=== PATIENT | female | born 1945 | race Caucasian/White ===

== ENCOUNTER 2021-02-04 14:33 | Outpatient (REF) | payer MEDICARE, SELFPAY ==
[2021-02-04 16:39] LABS: Hematocrit 46.3 % (37.0-47.0); Hemoglobin 15.8 g/dl (12.0-16.0); Mean Corpuscular HGB Conc 34.1 g/dl (31.0-35.0); Mean Corpuscular Hemoglobin 30.4 pg (27.0-33.0); Mean Corpuscular Volume 89.2 fL (80.0-98.0); Mean Platelet Volume 12.5 fL (9.4-12.3); Platelet Count 210 X10*3/uL (160-400); Red Blood Count 5.19 X10*6/uL (4.20-5.50); Red Cell Distribution Width 13.7 % (11.0-16.0); White Blood Count 8.2 X10*3/uL (4.8-10.8)
[2021-02-04 16:50] LABS: Alanine Aminotransferase 38 U/L (0-31); Albumin Level 3.9 g/dL (3.5-5.0); Alkaline Phosphatase 62 U/L (39-117); Anion Gap 11 (12-20); Aspartate Amino Transferase 26 U/L (5-31); Bilirubin Total 1.1 mg/dL (0.0-1.0); Blood Urea Nitrogen 11 mg/dL (9-16); Calcium 9.6 mg/dL (8.4-10.2); Carbon Dioxide 26 mmol/L (22-29); Chloride 105 mmol/L (96-108); Cholesterol 189 mg/dL; Estimated Glomerular Filt Rate > 60; Glucose Fasting 92 mg/dL (60-99); HDL Cholesterol 41 mg/dL; LDL Cholesterol Calculated 103 mg/dl; Potassium 4.2 mmol/L (3.3-5.1); Sodium 138 mmol/L (135-145); Total Protein 6.7 g/dL (6.5-8.0); Triglycerides 226 mg/dL
[2021-02-04 17:10] LABS: TSH reflex Free T4 2.26 uIU/mL (0.32-4.0); Vitamin D 25-OH Total 37.6 ng/mL (>30)
== END 2021-02-04 14:34 | disposition home or self-care (01) ==
LOC: HO.HMGCLDS 14:33
PROVIDERS: PCP Internal Medicine; Visit Provider Internal Medicine
DX: Z00.00 Encounter for general adult medical examination without abnormal findings (principal); I10 Essential (primary) hypertension; R00.1 Bradycardia, unspecified
CPT/HCPCS: 36415; 80053; 80061; 82306; 84443; 85027

== ENCOUNTER 2022-06-10 10:11 | Outpatient (REF) | payer OTHER, SELFPAY ==
--- NOTE | ~2022-06-10 | XR_ITS ---
EXAMINATION: XR lumbar spine 2-3V CLINICAL INFORMATION: Reason for Exam M54.50 - Low back pain, unspecified COMPARISON: None TECHNIQUE: 3 views of the lumbar spine FINDINGS: 5 nonrib-bearing lumbar-type vertebral bodies. Vertebral body heights are maintained. Leftward scoliosis of the lumbar spine Mild multilevel degenerative disc disease with loss of disc space height, facet arthropathy and disc osteophyte complexes. This is worst at L5/S1. Paravertebral soft tissues are unremarkable. XR/XR lumbar spine 2-3V IMPRESSION: Moderate spondylosis of the lumbar spine, as above detailed.
[2022-06-10 11:17] LABS: MANUAL DIFF FLAG NO
[2022-06-10 11:30] LABS: Basophils Absolute Auto 0.1 X10*3/uL (0.0-0.2); Basophils Percent Auto 0.6 % (0-2); Eosinophils Absolute Auto 0.3 X10*3/uL (0.0-0.4); Eosinophils Percent Auto 3.2 % (0-4); Hematocrit 47.5 % (37.0-47.0); Hemoglobin 15.3 g/dl (12.0-16.0); Imm Gran Abs Auto 0.03 X10*3/uL (0.00-0.03); Imm Gran Pct Auto 0.3 % (0.0-0.4); Lymphocytes Absolute Auto 2.2 X10*3/uL (1.2-4.9); Lymphocytes Percent Auto 24.8 % (20-40); Mean Corpuscular HGB Conc 32.2 g/dl (31.0-35.0); Mean Corpuscular Hemoglobin 27.1 pg (27.0-33.0); Mean Corpuscular Volume 84.2 fL (80.0-98.0); Mean Platelet Volume 12.3 fL (9.4-12.3); Monocytes Absolute Auto 0.8 X10*3/uL (0.1-1.2); Monocytes Percent Auto 8.8 % (2-11); Neutrophils Absolute Auto 5.6 x10*3/uL (2.0-8.3); Neutrophils Percent Auto 62.3 % (45-73); Platelet Count 243 X10*3/uL (160-400); Red Blood Count 5.64 X10*6/uL (4.20-5.50)
[2022-06-10 11:53] LABS: Alanine Aminotransferase 45 U/L (0-31); Alkaline Phosphatase 77 U/L (39-117); Anion Gap 14 (12-20); Aspartate Amino Transferase 32 U/L (5-31); Bilirubin Total 0.7 mg/dL (0.0-1.0); Blood Urea Nitrogen 18 mg/dL (9-16); Calcium 9.7 mg/dL (8.4-10.2); Carbon Dioxide 24 mmol/L (22-29); Chloride 108 mmol/L (96-108); Cholesterol 211 mg/dL; Estimated Glomerular Filt Rate > 60; Glucose Fasting 94 mg/dL (60-99); HDL Cholesterol 48 mg/dL; LDL Cholesterol Calculated 115 mg/dl; Potassium 4.5 mmol/L (3.3-5.1); Sodium 141 mmol/L (135-145); Triglycerides 244 mg/dL
[2022-06-10 12:11] LABS: TSH reflex Free T4 2.31 uIU/mL (0.32-4.0); Vitamin D 25-OH Total 50.1 ng/mL (>30)
== END 2022-06-10 10:12 | disposition home or self-care (01) ==
LOC: HO.HMGCX 10:11
PROVIDERS: PCP Internal Medicine; Visit Provider Internal Medicine
DX: M54.50 Low back pain, unspecified (principal); I10 Essential (primary) hypertension; K62.5 Hemorrhage of anus and rectum; E78.5 Hyperlipidemia, unspecified; I48.91 Unspecified atrial fibrillation; E55.9 Vitamin D deficiency, unspecified
CPT/HCPCS: 36415; 72100; 80053; 80061; 82306; 84443; 85025

== ENCOUNTER 2022-12-30 11:45 | Outpatient (AMB) | payer OTHER, MEDICARE, SELFPAY ==
--- NOTE | 2022-12-30 11:46 | A.OFFPC_ITS ---
Intake Visit Reasons: 30 day face to face-iPhone Intake Note: Telehealth visit. 30 day face to face. Allergies No Known Allergies Allergy (Verified 12/30/22 11:46) Medication List - Last Reconciled 12/30/22 by Vandana Carvajal MD amlodipine 5 mg PO DAILY apixaban (Eliquis) 5 mg PO BID hydralazine 25 mg PO BID irbesartan 300 mg PO DAILY levothyroxine 88 mcg PO DAILY miscellaneous medical supply 1 ea miscellaneous .QD pravastatin 20 mg PO DAILY Tobacco use date assessed: 12/30/22 Dental Screening Dental Screen Date: 12/30/22 Did you have a dental visit in the last 12 months?: Yes Did you have a dental problem in the last 6 months where you did not have access to dental care?: No Was dental information given to patient?: Patient has dentist HPI 30 day face to face-iPhone HPI Details This is a tele health [id number] visit. Patient resides in an assisted living facility. She has been staying mainly in bed during a day because her wheelchair is not comfortable. Patient is getting physical therapy twice a week to improve transfer from bed to wheelchair as well as passive range of motion on the left lower extremity. Hypertension is controlled on current medications. 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 [facility] Medical History NSTEMI (non-ST elevated myocardial infarction) A-fib SAH (subarachnoid hemorrhage) Bradycardia HTN (hypertension) Diarrhea Rectal bleeding Annual physical exam Family History Father Hypertension Heart problem Mother Hypertension Mental health disorder Social History Household Members Other:: lives with Housing: House Patient Tobacco Use Status: Never used Tobacco e-Cigarette/Vaping Use: Never Used Current occupational status: retired Cognitive needs: No Hearing needs: No Vision needs: No Questionnaire Thrive Questionnaire Date Thrive assessed: 04/29/21 KIRIT-7 AMB Questionnaire KIRIT-7 Date KIRIT - 7 assessed: 03/24/23 Source: Developed by Drs. Cesar Christiansen, Glenna Sears, Rush Quan and colleagues, with an educational collin from [employer]. Review of Systems Const All systems reviewed & are unremarkable except as noted in HPI and below Reports no additional complaints Eyes Reports no additional complaints ENT Reports no additional complaints Card Reports no additional complaints Resp Reports no additional complaints GI Reports no additional complaints Physical exam (Primary Care) Tobacco/Smoking Status: Tobacco use Status Tobacco use date assessed 12/30/22 12/30/22 11:47 Patient Tobacco Use Status Never used Tobacco 12/30/22 11:47 e-Cigarette/Vaping Use Never Used 12/30/22 11:47 Thrive Assessment: Date of Thrive Assessment Date Thrive assessed 04/29/21 12/30/22 11:47 Telehealth Telehealth Location of provider rendering services: practice address Location of patient: address on file Patient Identification confirmed using: Name, : Yes Telehealth method: video Patient verbally consented to treatment: Yes Patient verbally consented to billing insurance company: Yes Patient informed of any privacy concerns related to visit: Yes Minutes spent on Phone/Video with Pt.: 25 Assessment and Plan Assessment & Plan (1) Hyperlipidemia: Code(s): E78.5 - Hyperlipidemia, unspecified Plan: Continue statin, patient needs a fasting blood work in 6 months (2) A-fib: Comment: Anticoagulated Code(s): I48.91 - Unspecified atrial fibrillation Plan: Continue Eliquis (3) HTN (hypertension): Code(s): I10 - Essential (primary) hypertension Plan: Continue current medications (4) Hemiparesis: Code(s): G81.90 - Hemiplegia, unspecified affecting unspecified side Plan: It is medically necessary for the patient to have physical therapy twice a week to improve transfer from bed to wheelchair and to a shower/. Patient needs passive range of motion exercises for left upper and lower extremity, as well as assessment for wheelchair fitting. Patient will follow-up in 6 months for tele health visit and needs to have fasting blood work done prior to visit by [facility]. Orders: Orders Comprehensive [place]. Panel Fast 6 Months E78.5 - Hyperlipidemia, unspecified, G81.90 - Hemiplegia, unspecified affecting unspecified side, I10 - Essential (primary) hypertension, I48.91 - Unspecified atrial fibrillation Complete Blood Count Auto Diff 6 Months E78.5 - Hyperlipidemia, unspecified, G81.90 - Hemiplegia, unspecified affecting unspecified side, I10 - Essential (primary) hypertension, I48.91 - Unspecified atrial fibrillation Lipid Panel 6 Months E78.5 - Hyperlipidemia, unspecified, G81.90 - Hemiplegia, unspecified affecting unspecified side, I10 - Essential (primary) hypertension, I48.91 - Unspecified atrial fibrillation TSH reflex Free T4 6 Months E78.5 - Hyperlipidemia, unspecified, G81.90 - Hemiplegia, unspecified affecting unspecified side, I10 - Essential (primary) hypertension, I48.91 - Unspecified atrial fibrillation Coding Level of Care Code Tele Est Pt Level 4 (25628) Diagnoses Hyperlipidemia E78.5 A-fib I48.91 HTN (hypertension) I10 Hemiparesis G81.90
== END 2022-12-30 12:39 | disposition home or self-care (01) ==
LOC: HO.HMGC 11:45
PROVIDERS: PCP Internal Medicine; Visit Provider Internal Medicine
DX: E78.5 Hyperlipidemia, unspecified (principal); I48.91 Unspecified atrial fibrillation; I10 Essential (primary) hypertension; G81.90 Hemiplegia, unspecified affecting unspecified side
CPT/HCPCS: 99214

== ENCOUNTER 2023-06-17 01:00 | Outpatient (REF) | payer OTHER, MEDICARE, SELFPAY ==
[2023-06-17 13:49] LABS: Appearance Urine Cloudy; Glucose Urine UA Negative (Negative); Leukocyte Esterase Urine Large (3+) (Negative); Nitrite Urine Positive (Negative); PH 6.5 (5.0-9.0); Specific Gravity - Urine 1.015 (1.005-1.025); UMIC TRIGGER UACC YES; Urine Blood Large (3+) (Negative); Urine Ketones Trace mg/dL (Negative); Urine Protein 30 (1+) mg/dL (Neg-Trace)
[2023-06-17 13:52] LABS: Color Urine Other
[2023-06-17 14:09] LABS: Bacteria Urine 4+ (None Seen); Hyaline Casts Urine 0-2 /LPF (0-2); RBC Urine >20 /HPF (0-2); UACC Culture Trigger YES; WBC Urine >50 /HPF (0-5)
== END 2023-06-17 01:01 | disposition home or self-care (01) ==
LOC: HO.HMGCLNP 01:00
PROVIDERS: PCP Internal Medicine; Visit Provider Internal Medicine
DX: R31.9 Hematuria, unspecified (principal)
CPT/HCPCS: 81001; 87086; 87088; 87186

== ENCOUNTER 2023-11-24 12:00 | Outpatient (AMB) | payer MEDICARE, OTHER, SELFPAY ==
--- NOTE | 2023-11-24 12:02 | A.OFFPC_ITS ---
Vital Signs 11/24/23 12:04 Weight 184 lb 2 oz BP 118/76 Blood Pressure Location Rt brachial Position Sitting Pulse 80 Pulse Source Pulse Oximeter Pulse Oximetry (%) 97 Oxygen Delivery Method Room Air Intake Visit Reasons: Annual Exam - see comments Intake Note: Patient here for physical exam. Allergies No Known Allergies Allergy (Verified 11/24/23 12:04) Medication List - Last Reconciled 11/24/23 by Vandana Carvajal MD amlodipine 5 mg PO DAILY apixaban (Eliquis) 5 mg PO BID cholecalciferol (vitamin D3) 25 mcg PO DAILY hydralazine 25 mg PO BID irbesartan 300 mg PO DAILY levothyroxine 88 mcg PO DAILY melatonin 3 mg PO BEDTIME PRN miscellaneous medical supply 1 ea miscellaneous .QD multivitamin 1 tab PO DAILY pravastatin 20 mg PO DAILY Tobacco use date assessed: 11/24/23 Fall risk assessment: No Falls in past year Last assessed Fall Risk: 11/24/23 Dental Screening Dental Screen Date: 11/24/23 Did you have a dental visit in the last 12 months?: No Did you have a dental problem in the last 6 months where you did not have access to dental care?: No Was dental information given to patient?: No HPI Annual Exam - see comments HPI Details Patient presents for physical PFSH Medical History NSTEMI (non-ST elevated myocardial infarction) A-fib SAH (subarachnoid hemorrhage) Bradycardia HTN (hypertension) Diarrhea Rectal bleeding Annual physical exam Family History Father Hypertension Heart problem Mother Hypertension Mental health disorder Social History Household Members Other:: lives with Housing: House Patient Tobacco Use Status: Never used Tobacco e-Cigarette/Vaping Use: Never Used Current occupational status: retired Cognitive needs: No Hearing needs: No Vision needs: No Questionnaire PHQ-9 Over the last 2 weeks, how often have you been bothered by any of the following problems? 58166 - PHQ-9 Billing: Patient declined-do not bill Source: Developed by Drs. Cesar Christiansen, Glenna Sears, Rush Quan and colleagues, with an educational collin from [employer]. Thrive Questionnaire Date Thrive assessed: 11/24/23 I am a: Patient What is your living situation today?: I have a steady place to live Within the past 12 months, did the food you bought not last and you didn't have the money to get more?: Never true Within the past 12 months, did you worry whether your food would run out before you got money to buy more?: Never true Do you have trouble paying for medicines?: No Do you have trouble getting transportation to medical appointments?: Yes Do you have trouble paying your heating and electricity bill?: No Do you have trouble taking care of your child, family member or friend?: No Do you have trouble with day-to-day activities such as bathing, preparing meals, shopping, managing finances, etc.?: Yes Are you currently unemployed and looking for a job?: No Are you interested in more education?: No Please select the resources that you would like help with: Transportation Currently or been in a relationship where the following occur: No concerns reported THRIVE Score: 1 AUDIT C Alcohol Use Questionnaire (AUDIT-C) 1. How often do you have a drink containing alcohol?: Never Total Score: 0 Score Reviewed/Action Taken: No KIRIT-7 AMB Questionnaire KIRIT-7 Date KIRIT - 7 assessed: 11/24/23 Feeling nervous, anxious, or on edge: 0 = Not at all Not being able to stop or control worryin = Not at all Worrying too much about different things: 0 = Not at all Trouble relaxin = Not at all Being so restless that it is hard to sit still: 0 = Not at all Becoming easily annoyed or irritable: 0 = Not at all Feeling afraid as if something awful might happen: 0 = Not at all Total KIRIT-7 score (0-4 normal; 5-9 mild; 10-14 moderate; 15-21 severe): 0 Source: Developed by Drs. Cesar Christiansen, Glenna Sears, Rush Quan and colleagues, with an educational collin from [employer]. KIRIT-7 Assessment Billing KIRIT-7 Assessment Tool: KIRIT-7 Assessment 09233 Review of Systems Const All systems reviewed & are unremarkable except as noted in HPI and below Eyes Reports no additional complaints Card Reports no additional complaints Resp Reports no additional complaints GI Reports no additional complaints Reports no additional complaints Physical exam (Primary Care) Vital Signs: Last Vital Signs Pulse 80 11/24/23 12:04 BP 118/76 11/24/23 12:04 Pulse Ox 97 11/24/23 12:04 Oxygen Delivery Method Room Air 11/24/23 12:04 Tobacco/Smoking Status: Tobacco use Status Tobacco use date assessed 11/24/23 11/24/23 12:08 Patient Tobacco Use Status Never used Tobacco 11/24/23 12:03 e-Cigarette/Vaping Use Never Used 11/24/23 12:03 Thrive Assessment: Date of Thrive Assessment Date Thrive assessed 11/24/23 11/24/23 12:08 Currently or been in a relationship where the following occur: No concerns reported Const General: no acute distress HENMT Head: Yes normal to inspection Ears: hearing grossly normal bilaterally General nose exam: Normal external nose present Eyes General: appearance normal, both eyes and all related structures Neck Neck: Yes no lymphadenopathy and Yes supple Resp Effort & Inspection: normal respiratory effort Auscultation: clear to auscultation bilaterally Cardio Rhythm: regular rhythm Heart sounds: S1 normal heart sound present and S2 normal heart sound present GI Inspection: Yes normal to inspection Palpation (GI): Soft to palpation Percussion: Yes normal to percussion Auscultation: normal bowel sounds Assessment and Plan Assessment & Plan (1) Second degree AV block, Mobitz type II: Comment: 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 Return in 1 year Orders: Orders Comprehensive [place]. Panel Fast Today E55.9 - Vitamin D deficiency, unspecified, E78.5 - Hyperlipidemia, unspecified, G81.90 - Hemiplegia, unspecified affecting unspecified side, I10 - Essential (primary) hypertension, I44.1 - Atrioventricular block, second degree, I48.91 - Unspecified atrial fibrillation, Z00.00 - Encounter for general adult medical examination without abnormal findings Complete Blood Count Auto Diff Today E55.9 - Vitamin D deficiency, unspecified, E78.5 - Hyperlipidemia, unspecified, G81.90 - Hemiplegia, unspecified affecting unspecified side, I10 - Essential (primary) hypertension, I44.1 - Atrioventricular block, second degree, I48.91 - Unspecified atrial fibrillation, Z00.00 - Encounter for general adult medical examination without abnormal findings Lipid Panel Today E55.9 - Vitamin D deficiency, unspecified, E78.5 - Hyperlipidemia, unspecified, G81.90 - Hemiplegia, unspecified affecting unspecified side, I10 - Essential (primary) hypertension, I44.1 - Atrioventricular block, second degree, I48.91 - Unspecified atrial fibrillation, Z00.00 - Encounter for general adult medical examination without abnormal findings TSH reflex Free T4 Today E55.9 - Vitamin D deficiency, unspecified, E78.5 - Hyperlipidemia, unspecified, G81.90 - Hemiplegia, unspecified affecting unspecified side, I10 - Essential (primary) hypertension, I44.1 - Atrioventricular block, second degree, I48.91 - Unspecified atrial fibrillation, Z00.00 - Encounter for general adult medical examination without abnormal find ings Vitamin D 25-OH Total Today E55.9 - Vitamin D deficiency, unspecified, E78.5 - Hyperlipidemia, unspecified, G81.90 - Hemiplegia, unspecified affecting unspecified side, I10 - Essential (primary) hypertension, I44.1 - Atrioventricular block, second degree, I48.91 - Unspecified atrial fibrillation, Z00.00 - Encounter for general adult medical examination without abnormal findings Medications: New cholecalciferol (vitamin D3) 25 mcg PO DAILY 90 caps 3RF Refilled amlodipine 5 mg PO DAILY 90 tabs 3RF pravastatin 20 mg PO DAILY 90 tabs 3RF apixaban (Eliquis) 5 mg PO BID 180 tabs 3RF hydralazine 25 mg PO BID 180 tabs 3RF irbesartan 300 mg PO DAILY 90 tabs 3RF levothyroxine 88 mcg PO DAILY 90 tabs 3RF Coding Level of Care Code Est Pt Prev Care >65y(34299) Diagnoses Second degree AV block, Mobitz type II I44.1 A-fib I48.91 HTN (hypertension) I10 Annual physical exam Z00.00 Additional Codes KIRIT-7 Assessment Billing - KIRIT-7 Assessment Tool: KIRIT-7 Assessment 24737 ([id number])
[2023-11-24 12:04] VITALS: BP 118/76; PULSE 80; O2SAT 97
== END 2023-11-24 12:43 | disposition home or self-care (01) ==
PROVIDERS: PCP Internal Medicine; Visit Provider Internal Medicine
DX: Z00.00 Encounter for general adult medical examination without abnormal findings (principal); I44.1 Atrioventricular block, second degree; I48.91 Unspecified atrial fibrillation; I10 Essential (primary) hypertension
CPT/HCPCS: 99397

== ENCOUNTER 2023-11-24 12:40 | Outpatient (REF) | payer OTHER, SELFPAY ==
[2023-11-24 16:05] LABS: MANUAL DIFF FLAG NO
[2023-11-24 16:22] LABS: Basophils Absolute Auto 0.1 X10*3/uL (0.0-0.2); Basophils Percent Auto 0.6 % (0-2); Eosinophils Absolute Auto 0.3 X10*3/uL (0.0-0.4); Eosinophils Percent Auto 3.2 % (0-4); Hematocrit 49.5 % (37.0-47.0); Hemoglobin 16.3 g/dl (12.0-16.0); Imm Gran Abs Auto 0.05 X10*3/uL (0.00-0.03); Imm Gran Pct Auto 0.5 % (0.0-0.4); Lymphocytes Absolute Auto 2.5 X10*3/uL (1.2-4.9); Lymphocytes Percent Auto 24.9 % (20-40); Mean Corpuscular HGB Conc 32.9 g/dl (31.0-35.0); Mean Corpuscular Hemoglobin 29.6 pg (27.0-33.0); Mean Platelet Volume 12.1 fL (9.4-12.3); Monocytes Absolute Auto 0.8 X10*3/uL (0.1-1.2); Monocytes Percent Auto 8.1 % (2-11); Neutrophils Absolute Auto 6.3 x10*3/uL (2.0-8.3); Neutrophils Percent Auto 62.7 % (45-73); Platelet Count 222 X10*3/uL (160-400); Red Cell Distribution Width 14.2 % (11.0-16.0)
[2023-11-24 16:47] LABS: Alanine Aminotransferase 33 U/L (0-31); Alkaline Phosphatase 60 U/L (39-117); Anion Gap 12 (12-20); Aspartate Amino Transferase 26 U/L (5-31); Bilirubin Total 0.9 mg/dL (0.0-1.0); Blood Urea Nitrogen 20 mg/dL (9-16); Calcium 9.8 mg/dL (8.4-10.2); Carbon Dioxide 24 mmol/L (22-29); Chloride 104 mmol/L (96-108); Cholesterol 179 mg/dL (<200); Estimated Glomerular Filt Rate > 60; Glucose Fasting 100 mg/dL (60-99); HDL Cholesterol 47 mg/dL (>40); LDL Cholesterol Calculated 103 mg/dL (<100); Potassium 4.2 mmol/L (3.3-5.1); Sodium 136 mmol/L (135-145); Total Protein 7.5 g/dL (6.5-8.0); Triglycerides 149 mg/dL (<150)
[2023-11-24 16:55] LABS: TSH reflex Free T4 2.55 uIU/mL (0.32-4.0); Vitamin D 25-OH Total 73.5 ng/mL (>30)
== END 2023-11-24 12:41 | disposition home or self-care (01) ==
LOC: HO.HMGCLDS 12:40
PROVIDERS: PCP Internal Medicine; Visit Provider Internal Medicine
DX: Z00.00 Encounter for general adult medical examination without abnormal findings (principal); I44.1 Atrioventricular block, second degree; E55.9 Vitamin D deficiency, unspecified; E78.5 Hyperlipidemia, unspecified; G81.90 Hemiplegia, unspecified affecting unspecified side; I48.91 Unspecified atrial fibrillation; I10 Essential (primary) hypertension
CPT/HCPCS: 36415; 80053; 80061; 82306; 84443; 85025

== ENCOUNTER 2024-11-26 09:45 | Outpatient (REF) | payer MEDICARE, OTHER, SELFPAY ==
--- OUTSIDE RECORDS SUMMARY | 2024-11-26 13:08 | XMS_ITS ---
Author Organization [facility] Support Name Relationship Address Phone Catarina Noriega Guarantor [address] [place] [address] Catarina Noriega Personal Relationship [address] [place], [place] [phone] Hari Hayden Emergency Contact [address] [place] [address] Hayden Noriega Personal Relationship [address] [place] [address] [facility] Emergency Contact Unknown Allergies and adverse reactions No Known Allergies Functional Status Warning: Section unavailable due to inability to retrieve data. Immunizations Immunization Status Vaccine Details Vaccine Code CodeSystem Date Notes Influenza completed Influenza, split virus, trivalent, injectable, contains preservative lotNumber: [id number] expiry: 08/18/2016 Mfg: [employer] Given 0.5 ml Left Deltoid intramuscularly 141 CVX created date: 01/02/2017 consent date: 01/02/2017 administer ed date: 01/02/2017 Educated by on 01/02/2017 TB 1 Step Mantoux (PPD) completed tuberculin skin test; unspecified formulation 98 CVX created date: 11/18/2016 administer ed date: 11/15/2016 Mental Status Section Date Assessment Total Score Description 03/09/2017 BIMS 15 cognitively int act CAM 0 No delirium ind icated PHQ-9 01 minimal depress ion 02/02/2017 BIMS 15 cognitively int act CAM 0 No delirium ind icated PHQ-9 02 minimal depress ion Problems Problem # Description Date of onset Resolved Date Code CodeSystem Concern Status 1 ABNORMAL POSTURE 11/04/[address] a ctive 2 ACUTE RESPIRATORY FAILURE WITH HYPOXIA 11/04/[address] active 3 CEREBRAL ANEURYSM, NONRUPTURED 11/04/[address] active 4 DIFFICULTY IN WALKING, NOT ELSEWHERE CLASSIFIED 11/04/[address] active 5 DYSPHAGIA, UNSPECIFIED 11/04/[address] active 6 ESSENTIAL (PRIMARY) HYPERTENSION 11/04/[address] active 7 HEMIPLEGIA AND HEMIPARESIS FOLLOWING CEREBRAL INFARCTION AFFECTING LEFT NON-DOMINANT SIDE 11/04/[address] active 8 MUSCLE WEAKNESS (GENERALIZED) 11/04/[address] active 9 OTHER LACK OF COORDINATION 11/04/[address] active 10 OTHER PULMONARY EMBOLISM WITHOUT ACUTE COR PULMONALE 11/04/[address] active 11 PAROXYSMAL ATRIAL FIBRILLATION 11/04/[address] active 12 PERSONAL HISTORY OF URINARY (TRACT) INFECTIONS 11/04/[address] active 13 TRAUMATIC SUBARACHNOID HEMORRHAGE WITHOUT LOSS OF CONSCIOUSNESS, SUBSEQUENT ENCOUNTER 11/04/[address] active 14 UNSPECIFIED PROTEIN-CALORIE MALNUTRITION 11/04/[address] active 15 URINARY TRACT INFECTION, SITE NOT SPECIFIED 11/04/[address] active Reason for Referral No Reasons for Referral Entered Social History Social History Observation Description Start Date End Date Code Code System Current Smoking Status Tobacco smoking consumption unknown 987026833 SNOMED CT Sex Assigned At Female 1945 41426-1 [facility] Gender Identity Sexual Orientation Vital Signs Code Code System Vitals Name Values and Units Timing Information 39862-5 LOINC Pain Level Value=0.0 03/09/2017 9279-1 LOINC Respiratory Rate Value=18.0 Units=/m in 03/08/2017 8462-4 LOINC Blood Pressure-Diastolic Value=85 Un its=mmHg 03/08/2017 8480-6 LOINC Blood Pressure-Systolic Xnoky=719 Un its=mmHg 03/08/2017 8310-5 LOINC Body Temperature Value=97.4 Units= F 03/08/2017 8867-4 LOINC Heart rate Value=61.0 Units=/min 48055-8 LOINC O2 % BldC Oximetry Value=95.0 Units= % 03/08/2017 20078-9 LOINC Weight Farwn=777.0 Units=Lbs 12/2016 8302-2 LOINC Height Value=66.0 Units=Inches 11/05/2016
--- OUTSIDE RECORDS SUMMARY | 2024-11-26 13:08 | XMS_ITS | Clinical Summary ---
Author Organization [facility] Address [address] [place] [address] Care Team Providers Care Armament Installer Name Role Phone Vandana Carvajal MD Primary Care Provider [phone] Allergies No known active allergies Medications ergocalciferol (VITAMIN D2,DRISDOL) dropsIndications: SAH (subarachnoid hemorrhage) (HCC) Take 1 mL (8,000 Units total) by mouth daily. 60 mL 09/27/2016 Active amLODIPine (NORVASC) 5 MG tablet 07/18/2017 Active pravastatin (PRAVACHOL) 20 MG tablet 07/06/2017 Active metoPROLOL TARTRATE (LOPRESSOR) 25 MG tablet 07/18/2017 Active levothyroxine (SYNTHROID, LEVOTHROID) 88 MCG tablet 07/06/2017 Active irbesartan (AVAPRO) 300 MG tablet 08/11/2018 Active apixaban (ELIQUIS) 5 MG tablet Take 5 mg by mouth 2 (two) times a day. Active Multiple Vitamins-Minerals (MULTIVITAMIN ADULT PO) Take by mouth. Active Cholecalciferol (D3-1000 PO) Take by mouth. Active Melatonin 3 MG Tablet Dispersible Take by mouth. Active ketoconazole (NIZORAL) 2 % cream 10/09/2018 Active PROCTOZONE-HC 2.5 % rectal cream 11/04/2018 Acti ve Fexofenadine HCl (SILVIA PO) Take by mouth. 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 09/27/2016 Vaginal yeast infection 09/27/2016 Shingles 09/27/2016 TN (myocardial infarction) 09/27/2016 A-fib 09/27/2016 Accelerated idioventricular rhythm 09/27/2016 Dysphagia 09/27/2016 Protein calorie malnutrition 09/27/2016 Ileus 09/27/2016 SAH (subarachnoid hemorrhage) 09/04/2016 Resolved Problems Problem Noted Date Diagnosed Date Resolved Date UTI (urinary tract infection) 09/27/2016 06/01/2023 Social History Tobacco Use Types Packs/Day Years Used Date Smoking Tobacco: Former Smokeless Tobacco: Never Alcohol Use Standard Drinks/Week Comments Yes 0 (1 standard drink = 0.6 oz pur e alcohol) socially Comments No Sex and Gender Information Value Date Recorded Sex Assigned at Not on file Legal Sex Female 11:55 PM EDT Gender Identity Not on file Sexual Orientation Not on file Last Filed Vital Signs Vital Sign Reading Time Taken Comments Blood Pressure 122/82 11/06/2018 10:13 AM EDT Pulse 65 11/06/2018 10:13 AM EDT Temperature 36.4 C (97.5 F) 10/24/2018 9:29 AM EDT Respiratory Rate 16 11/06/2018 10:13 AM EDT Oxygen Saturation 95% 10/24/2018 2:00 PM EDT Inhaled Oxygen Concentration - - Weight 81.6 kg (180 lb) 11/06/2018 10:13 AM EDT Per Patient Height 167.6 cm (5' 6 ) 10/24/2018 9:29 AM EDT Body Mass Index 29.05 10/24/2018 9:29 AM EDT Plan of Treatment Health Maintenance Due Date Last Done Comments Advance Care Planning 1945 DTaP/Tdap/Td Vaccines (1 - Tdap) 12/08/1962 Pneumococcal Vaccines 50+ (1 of 2 - PCV) 12/08/1962 Zoster (Shingles) Vaccine (1 of 2) 12/08/1993 DXA Bone Density (Females,Ag es 65 and older) 12/08/2008 RSV Vaccine 60 years and old er and Patients (1 - 1-dose 75+ series) 12/08/2018 Influenza Vaccine 10/18/2024 COVID-19 Vaccine ( - 2023-2 5 season) 2024 Hepatitis B Vaccines Aged Out No long er eligible based on patient's age to complete this topic Medical Devices Implanted Type Area Agri Business Agent Device Identifier Shelf Expiration Date Model / Serial / Lot Coil Embolization 15cm 5mm Csms Vtrk 10 Coil Adv Delivery - [id number] Implanted:Qty: 1 on 09/04/2016 by Jesus Mathur MD at [facility] Coil [employer] 04/20/2019 [id number] / [id number] / Coil Embolization 8cm 4mm .0125in Axium Detach .3175mm 3d - [id number] Implanted:Qty: 1 on 09/04/2016 by Jesus Mathur MD at [facility] Coil [employer] MINIMALLY INVASIVE T 04/25/2019 QC-4-8-3D / QC-4-8-3D / Coil Embolization 4cm 3mm Axium Prm X Soft 3d - [id number] Implanted:Qty: 1 on 09/04/2016 by Jesus Mathur MD at [facility] Coil [employer] MINIMALLY INVASIVE T 07/30/2019 APB-3-4-3D -ES / APB-3-4-3D -ES / Coil Embolization 6cm 2.5mm Axium Prm X Soft 3d - [id number] Implanted:Qty: 1 on 09/04/2016 by Jesus Mathur MD at [facility] Coil [employer] MIN[employer] INV[employer] T 03/22/2018 APB-2.5-6- 3D-ES / APB-2.5-6- 3D-ES / System Embolization 8cm 5mm .0115in Axium Prm Latticefx - [id number] Implanted:Qty: 1 on 09/04/2016 by Jesus Mathur MD at [facility] Scre[employer] MINIMALLY INVASIVE T 04/15/2019 APB-5-8-3D -SS / APB-5-8-3D -SS / Explanted Type Area Agri Business Agent Device Identifier Shelf Expiration Date Model / Serial / Lot Coil Embolization 2cm 2mm Axium Prm X Soft 3d - [id number] Implanted:Qty: 1 Explanted:Qty: 1 on 09/04/2016 at [facility] Coil [employer] MIN[employer]ALLY INVASIVE T 06/14/2018 APB-2-2-3D- ES / APB-2-2-3D- ES / Insurance MEDICARE PART A & B [facility] Advance Directives * Full Code (Latest Code Status on File) Date Activated Date Inactivated Comments 09/04/2016 3:10 AM 09/27/2016 6:35 PM Question Answer Comments Decision Thoroughly Discussed with: Patient Care Teams Armament Installer Relationship Specialty Start Date End Date Vandana Carvajal MD [address] [place] [id number] PCP - General 08/24/17
--- OUTSIDE RECORDS SUMMARY | 2024-11-26 13:09 | XMS_ITS | Encounter Summary ---
Author Organization [facility]ly [facility] Address [address] [place] [address] Care Team Providers Care Dairy Nutrition Consultant Name Role Phone Vandana Carvajal MD Primary Care Provider [phone] Encounter Details Date Type Department Care Team (Late st Contact Info) Description 09/28/2016 Scanned Document [facility] Neurosurgery [place] [address] [place] [address] Lang Vega MD 85 [facility] [address] [place] [address] Social History Tobacco Use Types Packs/Day Years Used Date Smoking Tobacco: Unknown Comments Unknown Sex and Gender Information Value Date Recorded Sex Assigned at Not on file Legal Sex Female 11:55 PM EDT Gender Identity Not on file Sexual Orientation Not on file documented as of this encounter Plan of Treatment Not on file documented as of this encounter Visit Diagnoses Not on filedocumented in this encounter Care Teams Dairy Nutrition Consultant Relationship Specialty Start Date End Date Vandana Carvajal MD [address] [place] [address] PCP - General 08/24/17 documented as of this encounter
--- OUTSIDE RECORDS SUMMARY | 2024-11-26 13:09 | XMS_ITS | Clinical Summary ---
Author Organization [address] [facility] Address [address] [place] [address] Phone Care Team Providers Care Web Support Engineer Name Role Phone Vandana Carvajal MD Primary Care Provider Encounters Date Type Department Care Team Description 10/12/2024 2:20 AM EDT Ancillary Procedure [facility] - [facility] [address] 300 [facility] [address] [place] [address] from Last 3 Months Medical History Medical History Date Comments Diarrhea DX:Diarrhea NSTEMI (non-ST elevated myoc ardial infarction) (CMS/HCC V24, CMS/HCC V28) DX:NSTEMI (non- ST elevated myocardial infarction) ([facility]) Rectal bleeding DX:Rectal bleedi ng Subarachnoid hemorrhage (CMS /HCC V24, CMS/[facility] V28) DX:Subarachnoid hemorrhage ( [facility]) Social History Tobacco Use Types Packs/Day Years Used Date Smoking Tobacco: Never Smokeless Tobacco: Never Alcohol Use Standard Drinks/Week Comments Never 0 (1 standard drink = 0.6 oz pur e alcohol) Comments Unknown Sex and Gender Information Value Date Recorded Sex Assigned at Not on file Legal Sex Female 11:27 AM EST Gender Identity Not on file Sexual Orientation Not on file Obstetrics History Last Filed Vital Signs Vital Sign Reading Time Taken Comments Blood Pressure 130/62 06/17/2021 2:55 PM EDT Sit ting R Arm Pulse 42 06/17/2021 2:55 PM EDT Temperature - - Respiratory Rate - - Oxygen Saturation - - Inhaled Oxygen Concentration - - Weight 86.2 kg (190 lb) 06/17/2021 2:55 PM EDT Height 167.6 cm (5' 6 ) 06/17/2021 2:55 PM EDT Body Mass Index 30.67 06/17/2021 2:55 PM EDT Plan of Treatment Health Maintenance Due Date Last Done Comments DTaP,Tdap,and Td Vaccines (1 - Tdap) 12/08/1962 Zoster Vaccines (1 of 2) 12/08/1993 Pneumococcal Vaccine: 50+ Years (2 of 2 - PPSV23) 10/05/2017 10/05/2016 RSV Immunization Adult Patients (1 - 1-dose 75+ series) 12/08/2018 Cholesterol Screening (Lipid Panel) 02/27/2022 Falls Risk Assessment 02/27/2022 Medicare Annual Wellness Visit 02/27/2022 Osteoporosis Screening (Bone Density Screening) 02/27/2022 Social Influencers of Health Screening 02/27/2022 Hypertension/CHF/CAD Annual BMP Blood Test 03/03/2022 Depression Screening 03/20/2024 COVID-19 Vaccine (3 - 2024- season) 2024 06/02/2020, 05/05/2020 Influenza Vaccine (#1) 2024 2, 12/26/2019, 01/12/2019, Additional history exists HIB Vaccines Aged Out No longer eligi ble based on patient's age to complete this topic HPV Vaccines Aged Out No longer eligi ble based on patient's age to complete this topic Hepatitis A Vaccines Aged Out No long er eligible based on patient's age to complete this topic Hepatitis B Vaccines Aged Out No long er eligible based on patient's age to complete this topic IPV Vaccines Aged Out No longer eligi ble based on patient's age to complete this topic MMR Vaccines Aged Out No longer eligi ble based on patient's age to complete this topic Meningococcal ACWY Vaccine Aged Out N o longer eligible based on patient's age to complete this topic Meningococcal B Vaccine Aged Out No l onger eligible based on patient's age to complete this topic RSV Immunization Patients Under 20 months Aged Out No longer eligible based on patient's age to complete this topic Varicella Vaccines Aged Out No longer eligible based on patient's age to complete this topic Medical Devices Implanted Type Area Card Dealer Device Identifier Shelf Expiration Date Model / Serial / Lot FouziaHaileyCassidy Fontana 8 Pia [id number] Implanted:040 03/2021 (Quantity not on file) Cardiac Pacemaker [employer] ALEXA NAIK / [id number] / Procedures Procedure Name Priority Date/Time Associated Diagnosis Comments CARDIAC DEVICE CHECK- REMOTE- MURJ Routine 10/12/2024 2:17 AM EDT from Last 3 Months Results * Cardiac device check - Remote- MURJ (10/12/2024 2:17 AM EDT) Date Time Interrogation Session [id number] CV DEVICE CHECK Type Interrogation Session RemoteScheduled CV DEVICE CHECK Implantable Pulse Generator Card Dealer BIO CV DEVICE CHECK Implantable Pulse Generator Type IPG CV DEVICE CHECK Implantable Pulse Generator Model Edora 8 DR-T CV DEVICE CHECK Implantable Pulse Generator Serial Number [id number] CV DEVICE CHECK Implantable Pulse Generator Implant Date [id number] CV DEVICE CHECK Battery Remaining Percentage 80.00 CV DEVICE CHECK Battery Status Middle of Service CV DEVICE CHECK Pramod Statistic RA Percent Paced 13.00 CV DEVICE CHECK Pramod Statistic RV Percent Paced 97.00 CV DEVICE CHECK Atrial Tachy Statistic AT/AF [place] Percent 0.00 CV DEVICE CHECK Lead Channel Sensing Intrinsic Amplitude 4.600 CV DEVICE CHECK Lead Channel Setting Sensing Sensitivity 0.50 CV DEVICE CHECK Lead Channel Impedance Value 585 CV DEVICE CHECK Lead Channel RA Pacing Threshold Date 2024-10-10 CV DEVICE CHECK Lead Channel Setting Pacing Amplitude 2.000 CV DEVICE CHECK Lead Channel Setting Pacing Pulse Width 0.4 CV DEVICE CHECK Lead Channel Sensing Intrinsic Amplitude 10.500 CV DEVICE CHECK Lead Channel Setting Sensing Sensitivity 2.00 CV DEVICE CHECK Lead Channel Impedance Value 878 CV DEVICE CHECK Lead Channel Pacing Threshold Amplitude 0.700 CV DEVICE CHECK Lead Channel Pacing Threshold Pulse Width 0.4 CV DEVICE CHECK Lead Channel RV Pacing Threshold Date 2024-10-10 CV DEVICE CHECK Lead Channel Setting Pacing Amplitude 2.000 CV DEVICE CHECK Lead Channel Setting Pacing Pulse Width 0.4 CV DEVICE CHECK Pramod Setting Mode (NBG Code) DDD CV DEVICE CHECK Pramod Setting Lower Rate Limit 60 CV DEVICE CHECK Pramod Setting AT Mode Switch Rate 160 CV DEVICE CHECK Pramod Setting Maximum Tracking Rate 130 CV DEVICE CHECK Pramod Setting Maximum Sensor Rate 120 CV DEVICE CHECK Pramod Setting PAV Delay 160 CV DEVICE CHECK Pramod Setting JOSEPH Delay 140 CV DEVICE CHECK Date of Service 2024-10-24 CV DEVICE CHECK Anatomical Region Laterality Modality Device Interroga tion 10/09/2024 5:58 PM EDT Impressions 10/11/2024 1:04 PM EDT Normal Remote: No Events * Normal Device Function * Alerts or events: None * Battery: Battery is at 80%, * Sensing, impedance and thresholds reviewed * Programmed parameters reviewed * Presenting rhythm reviewed * Heart Rate Histograms reviewed * No significant changes noted Narrative Procedure Note Sathish Mauricio MD - 10/12/2024 IMPRESSION: Normal Remote: No Events * Normal Device Function * Alerts or events: None * Battery: Battery is at 80%, * Sensing, impedance and thresholds reviewed * Programmed parameters reviewed * Presenting rhythm reviewed * Heart Rate Histograms reviewed * No significant changes noted Sathish Mauricio MD CV IMPLANTABLE CARDIAC DEVICE PROCEDURES Final Result from Last 3 Months Insurance [employer] MEDICARE Care Teams Web Support Engineer Relationship Specialty Start Date End Date Vandana Carvajal MD PCP - General 06/01/17
[2024-11-26 13:32] LABS: Appearance Urine Cloudy; UMIC TRIGGER UA YES
[2024-11-26 13:35] LABS: Glucose Urine UA Negative (Negative); PH 7.0 (5.0-9.0); Specific Gravity - Urine 1.015 (1.005-1.025)
== END 2024-11-26 09:46 | disposition home or self-care (01) ==
LOC: HO.HMGCLNP 09:45
PROVIDERS: PCP Internal Medicine; Visit Provider Internal Medicine
DX: N39.0 Urinary tract infection, site not specified (principal)
CPT/HCPCS: 81001; 87086; 87088; 87186

== ENCOUNTER 2025-01-10 12:17 | Outpatient (REF) | payer MEDICARE, OTHER, SELFPAY ==
[2025-01-10 16:06] LABS: MANUAL DIFF FLAG NO
[2025-01-10 16:15] LABS: Hematocrit 48.2 % (37.0-47.0); Hemoglobin 16.2 g/dl (12.0-16.0); Imm Gran Abs Auto 0.03 X10*3/uL (0.00-0.03); Imm Gran Pct Auto 0.3 % (0.0-0.4); Lymphocytes Absolute Auto 2.0 X10*3/uL (1.2-4.9); Mean Corpuscular HGB Conc 33.6 g/dl (31.0-35.0); Mean Corpuscular Hemoglobin 30.1 pg (27.0-33.0); Mean Corpuscular Volume 89.4 fL (80.0-98.0); NRBC Abs Auto 0.000 X10*3/uL (0.0-0.012); NRBC Pct Auto 0.0 /100WBC (0.0-0.2); Platelet Count 194 X10*3/uL (160-400); Red Blood Count 5.39 X10*6/uL (4.20-5.50); White Blood Count 8.9 X10*3/uL (4.8-10.8)
[2025-01-10 17:30] LABS: Alanine Aminotransferase 49 U/L (0-31); Albumin Level 4.4 g/dL (3.5-5.0); Alkaline Phosphatase 71 U/L (39-117); Anion Gap 13 (12-20); Aspartate Amino Transferase 35 U/L (5-31); Blood Urea Nitrogen 17 mg/dL (9-16); Calcium 9.9 mg/dL (8.4-10.2); Carbon Dioxide 24 mmol/L (22-29); Chloride 107 mmol/L (96-108); Cholesterol 182 mg/dL (<200); Estimated Glomerular Filt Rate > 60; HDL Cholesterol 48 mg/dL (>40); Potassium 4.0 mmol/L (3.3-5.1); Sodium 140 mmol/L (135-145); Total Protein 7.7 g/dL (6.5-8.0); Triglycerides 163 mg/dL (<150)
== END 2025-01-10 12:18 | disposition home or self-care (01) ==
LOC: HO.HMGCLDS 12:17
PROVIDERS: PCP Internal Medicine; Visit Provider Internal Medicine
DX: I10 Essential (primary) hypertension (principal); I48.91 Unspecified atrial fibrillation; E78.5 Hyperlipidemia, unspecified; G81.90 Hemiplegia, unspecified affecting unspecified side; E55.9 Vitamin D deficiency, unspecified; L98.9 Disorder of the skin and subcutaneous tissue, unspecified; R30.0 Dysuria; Z79.01 Long term (current) use of anticoagulants; Z79.890 Hormone replacement therapy; Z79.899 Other long term (current) drug therapy
CPT/HCPCS: 36415; 80053; 80061; 82306; 84443; 85025; 96127; 99397

== ENCOUNTER 2025-01-10 12:17 | Outpatient (AMB) | payer MEDICARE, OTHER, SELFPAY ==
--- NOTE | 2025-01-10 12:37 | A.OFFPC_ITS ---
Vital Signs 01/10/25 12:38 01/10/25 13:11 BMI Reason not done Patient refused/unable BP 138/94 H 125/80 Blood Pressure Location Lt brachial Rt brachial Position Sitting Sitting Respiration 15 Pulse 74 Pulse Source Pulse Oximeter Temp 97.6 F Temp Source Oral Pulse Oximetry (%) 96 Oxygen Delivery Method Room Air Intake Visit Reasons: Annual PE - see comments Intake Note: Pt is here today for PE. Allergies No Known Allergies Allergy (Verified 01/10/25 12:39) Medication List - Last Reconciled 01/10/25 by Vandana Carvajal MD amlodipine 5 mg PO DAILY apixaban (Eliquis) 5 mg PO BID cholecalciferol (vitamin D3) 25 mcg PO DAILY hydralazine 25 mg PO BID irbesartan 300 mg PO DAILY levothyroxine 88 mcg PO DAILY melatonin 3 mg PO BEDTIME PRN miscellaneous medical supply 1 ea miscellaneous .QD multivitamin 1 tab PO DAILY pravastatin 20 mg PO DAILY Tobacco use date assessed: 01/10/25 Fall risk assessment: No Falls in past year Last assessed Fall Risk: 01/10/25 Dental Screening Dental Screen Date: 01/10/25 Did you have a dental visit in the last 12 months?: No Did you have a dental problem in the last 6 months where you did not have access to dental care?: No Was dental information given to patient?: Patient declined HPI Annual PE - see comments HPI Details Pt presents for PE. [facility] Medical History NSTEMI (non-ST elevated myocardial infarction) A-fib SAH (subarachnoid hemorrhage) Bradycardia HTN (hypertension) Diarrhea Rectal bleeding Annual physical exam Family History Father Hypertension Heart problem Mother Hypertension Mental health disorder Social History (Updated 01/10/25 @ 13:08 by Vandana Carvajal MD) Household Members Other:: lives in assisted living Housing: House Patient Tobacco Use Status: Never used Tobacco e-Cigarette/Vaping Use: Never Used service: No Current occupational status: retired Cognitive needs: No Hearing needs: No Vision needs: No Questionnaire PHQ-9 Over the last 2 weeks, how often have you been bothered by any of the following problems? 1. Little interest or pleasure in doing things: several days 2. Feeling down, depressed, or hopeless: not at all 3. Trouble falling or staying asleep, or sleeping too much: not at all 4. Feeling tired or having little energy: not at all 5. Poor appetite or overeating: not at all 6. Feeling bad about yourself - or that you are a failure or have let yourself or your family down: not at all 7. Trouble concentrating on things, such as reading the newspaper or watching television: not at all 8. Moving or speaking so slowly that other people could have noticed. Or the opposite - being so fidgety or restless that you have been moving around a lot more than usual: not at all 9. Thoughts that you would be better off or of hurting yourself in some way: not at all Total score: 1 Depression Screening Interpretation: Negative Depression Screening Done: Yes 50135 - PHQ-9 Billing: Yes Source: Developed by Drs. Cesar Christiansen, Glenna Sears, Rush Quan and colleagues, with an educational collin from [employer]. Thrive Questionnaire Date Thrive assessed: 01/10/25 I am a: Patient What is your living situation today?: I have a steady place to live Within the past 12 months, did the food you bought not last and you didn't have the money to get more?: Never true Within the past 12 months, did you worry whether your food would run out before you got money to buy more?: Never true Do you have trouble paying for medicines?: No Do you have trouble getting transportation to medical appointments?: Yes Do you have trouble paying your heating and electricity bill?: No Do you have trouble taking care of your child, family member or friend?: No Do you have trouble with day-to-day activities such as bathing, preparing meals, shopping, managing finances, etc.?: Yes Are you currently unemployed and looking for a job?: No Are you interested in more education?: No Please select the resources that you would like help with: None Currently or been in a relationship where the following occur: No concerns reported THRIVE Score: 1 AUDIT C Alcohol Use Questionnaire (AUDIT-C) 1. How often do you have a drink containing alcohol?: Never 3. How often do you have six or more drinks on one occasion?: Never Total Score: 0 KIRIT-7 AMB Questionnaire KIRIT-7 Date KIRIT - 7 assessed: 01/10/25 Feeling nervous, anxious, or on edge: 1 = Several days Not being able to stop or control worryin = Not at all Worrying too much about different things: 0 = Not at all Trouble relaxin = Not at all Being so restless that it is hard to sit still: 0 = Not at all Becoming easily annoyed or irritable: 0 = Not at all Feeling afraid as if something awful might happen: 1 = Several days Total KIRIT-7 score (0-4 normal; 5-9 mild; 10-14 moderate; 15-21 severe): 2 Source: Developed by Drs. Cesar Christiansen, Glenna Sears, Rush Quan and colleagues, with an educational collin from [employer]. KIRIT-7 Assessment Billing KIRIT-7 Assessment Tool: KIRIT-7 Assessment 88962 Review of Systems Const All systems reviewed & are unremarkable except as noted in HPI and below Eyes Reports no additional complaints ENT Reports no additional complaints Card Reports no additional complaints Resp Reports no additional complaints GI Reports no additional complaints Reports no additional complaints Physical exam (Primary Care) Vital Signs: Last Vital Signs Temp 97.6 F 01/10/25 12:38 Pulse 74 01/10/25 12:38 Resp 15 01/10/25 12:38 BP 138/94 H 01/10/25 12:38 Pulse Ox 96 01/10/25 12:38 Oxygen Delivery Method Room Air 01/10/25 12:38 Tobacco/Smoking Status: Tobacco use Status Tobacco use date assessed 01/10/25 01/10/25 12:44 Patient Tobacco Use Status Never used Tobacco 01/10/25 12:44 e-Cigarette/Vaping Use Never Used 01/10/25 12:44 PHQ-9: PHQ-9 Score PHQ-9: Total score 1 01/10/25 12:45 Depression Screening Interpretation: Negative Thrive Assessment: Date of Thrive Assessment Date Thrive assessed 01/10/25 01/10/25 12:45 Currently or been in a relationship where the following occur: No concerns reported Const General: no acute distress HENMT Head: Yes normal to inspection Face and sinus: Yes normal facial exam Mouth: Normal oral and palatal mucosa present Eyes General: appearance normal, both eyes and all related structures Resp Effort & Inspection: normal respiratory effort Auscultation: clear to auscultation bilaterally Cardio Rhythm: regular rhythm Heart sounds: S1 normal heart sound present and S2 normal heart sound present GI Inspection: Yes normal to inspection Palpation (GI): Soft to palpation Percussion: Yes normal to percussion Auscultation: normal bowel sounds Coding Level of Care Code Est Pt Prev Care >65y(16780) Diagnoses HTN (hypertension) I10 A-fib I48.91 Hyperlipidemia E78.5 Hemiparesis G81.90 Lesion of skin of nose L98.9 Additional Codes KIRIT-7 Assessment Billing - KIRIT-7 Assessment Tool: KIRIT-7 Assessment 09687 ([id number]) PHQ-9 - 56968 - PHQ-9 Billing: Yes ([id number]) Assessment & Plan Assessment & Plan (1) HTN (hypertension): Code(s): I10 - Essential (primary) hypertension Category: Medical Plan: Continue current medications (2) A-fib: Comment: Anticoagulated, bradycardia on beta rowan Code(s): I48.91 - Unspecified atrial fibrillation Category: Medical Plan: Continue Eliquis for anticoagulation (3) Hyperlipidemia: Code(s): E78.5 - Hyperlipidemia, unspecified Category: Medical Plan: Continue statin (4) Hemiparesis: Comment: Patient lives in assisted living facility, wheelchair bound Code(s): G81.90 - Hemiplegia, unspecified affecting unspecified side Category: Medical Plan: Stable (5) Lesion of skin of nose: Code(s): L98.9 - Disorder of the skin and subcutaneous tissue, unspecified Category: Medical Plan: For nonhealing lesion on the bridge of the nose patient was advised to see a telephone repairer but she declined. She will monitor the change in there is no improvement after month patient will notify the office and referral will be made to dermatology Orders: Orders Comprehensive Ramona. Panel Fast Today E78.5 - Hyperlipidemia, unspecified, G81.90 - Hemiplegia, unspecified affecting unspecified side, I10 - Essential (primary) hypertension, I48.91 - Unspecified atrial fibrillation Complete Blood Count Auto Diff Today E78.5 - Hyperlipidemia, unspecified, G81.90 - Hemiplegia, unspecified affecting unspecified side, I10 - Essential (primary) hypertension, I48.91 - Unspecified atrial fibrillation TSH reflex Free T4 Today E78.5 - Hyperlipidemia, unspecified, G81.90 - Hemiplegia, unspecified affecting unspecified side, I10 - Essential (primary) hypertension, I48.91 - Unspecified atrial fibrillation UA w Microscopic Today E78.5 - Hyperlipidemia, unspecified, G81.90 - Hemiplegia, unspecified affecting unspecified side, I10 - Essential (primary) hypertension, I48.91 - Unspecified atrial fibrillation Lipid Panel Today E78.5 - Hyperlipidemia, unspecified, G81.90 - Hemiplegia, unspecified affecting unspecified side, I10 - Essential (primary) hypertension, I48.91 - Unspecified atrial fibrillation Urine Culture Today G81.90 - Hemiplegia, unspecified affecting unspecified si de, R30.0 - Dysuria Vitamin D 25-OH Total Today E55.9 - Vitamin D deficiency, unspecified, G81.90 - Hemiplegia, unspecified affecting unspecified side Medications: Refilled pravastatin 20 mg PO DAILY 90 tabs 3RF levothyroxine 88 mcg PO DAILY 90 tabs 3RF
[2025-01-10 12:38] VITALS: BP 138/94; PULSE 74; RESP 15; TEMP 36.4; O2SAT 96
[2025-01-10 13:11] VITALS: BP 125/80
--- OUTSIDE RECORDS SUMMARY | 2025-01-10 14:25 | XMS_ITS | Encounter Summary ---
Author Organization [facility] Address [address] [place] [address] Care Team Providers Care Corrosion Control Engineer Name Role Phone Vandana Carvajal MD Primary Care Provider [phone] Encounter Details Date Type Department Care Team (Late st Contact Info) Description 09/28/2016 Scanned Document [facility] Neurosurgery [place] [address] [place] [address] Lang Vega MD 85 [facility] [address] [place] [address] Social History Tobacco Use Types Packs/Day Years [...] on filedocumented in this encounter Care Teams Corrosion Control Engineer Relationship Specialty Start Date End Date Vandana Carvajal MD [address] [place] [address] PCP - General 08/24/17 documented as of this encounter
--- OUTSIDE RECORDS SUMMARY | 2025-01-10 14:25 | XMS_ITS | Clinical Summary ---
Author Organization 300 [facility] Address [address] [place] [address] Phone Care Team Providers Care Army Officer Name Role Phone Vandana Carvajal MD Primary Care Provider [phone] Encounters Date Type Department Care Team Description 10/12/2024 2:20 AM EDT Ancillary Procedure [facility] - [facility] [address] [facility] [address] [place] [address] from Last 3 Months Medical History Medical History Date Comments Diarrhea DX:Diarrhea NSTEMI (non-ST elevated myoc ardial infarction) (CMS/HCC V24, CMS/HCC V28) DX:NSTEMI (non- ST elevated myocardial infarction) ([facility]) Rectal bleeding DX:Rectal bleedi ng Subarachnoid hemorrhage (CMS /HCC V24, CMS/[facility] V28) DX:Subarachnoid hemorrhage ( [facility]) Social History Tobacco Use Types Packs/Day Years [...] Vaccine: 50+ Years (2 of 2 - PCV20 or PCV21) 10/05/2017 10/05/2016 RSV Immunization Adult Patients (1 - 1-dose 75+ series) 12/08/2018 Cholesterol Screening (Lipid Panel) 02/27/2022 Falls Risk Assessment 02/27/2022 Medicare Annual Wellness Visit 02/27/2022 Osteoporosis Screening (Bone Density Screening) 02/27/2022 Social Influencers of Health Screening 02/27/2022 Hypertension/CHF/CAD Annual BMP Blood Test 03/03/2022 Depression Screening 03/20/2024 COVID-19 Vaccine (3 - season) 2024 06/02/2020, 05/05/2020 Influenza Vaccine (#1) [...] this topic Medical Devices Implanted Type Area Statistical Machine Mechanic Device Identifier Shelf Expiration Date Model / Serial / Lot FouziaHaileyCassidy Naik [id number] Implanted:04/0 03/2021 (Quantity not on file) Cardiac Pacemaker [employer] ALEXA NAIK / [id number] / Procedures Procedure Name Priority Date/Time Associated Diagnosis Comments CARDIAC DEVICE CHECK- REMOTE- MURJ Routine 10/12/2024 2:17 AM EDT from Last 3 Months Results * Cardiac device check - Remote- MURJ (10/12/2024 2:17 AM EDT) Date Time Interrogation Session [id number] CV DEVICE CHECK Type Interrogation Session RemoteScheduled CV DEVICE CHECK Implantable Pulse Generator Statistical Machine Mechanic BIO CV DEVICE CHECK Implantable Pulse Generator Type IPG CV DEVICE CHECK Implantable Pulse Generator Model Edora 8 DR-T CV DEVICE CHECK Implantable Pulse Generator Serial Number [id number] CV DEVICE CHECK Implantable Pulse Generator Implant Date [id number] CV DEVICE CHECK Battery Remaining Percentage 80.00 CV DEVICE CHECK Battery Status Middle of Service CV DEVICE CHECK Pramod Statistic RA Percent Paced 13.00 CV DEVICE CHECK Pramod Statistic RV Percent Paced 97.00 CV DEVICE CHECK Atrial Tachy Statistic AT/AF [place] Percent 0.00 CV DEVICE CHECK Lead Channel [...] Months Insurance [employer] MEDICARE Care Teams Army Officer Relationship Specialty Start Date End Date Vandana Carvajal MD PCP - General 06/01/17
--- OUTSIDE RECORDS SUMMARY | 2025-01-10 14:25 | XMS_ITS | Clinical Summary ---
Author Organization [facility] Address [address] [place] [address] Care Team Providers Care Wind Turbine Design Engineer Name Role Phone Vandana Carvajal MD Primary Care Provider [phone] Allergies No known active allergies Medications ergocalciferol [...] 09/27/2016 Vaginal yeast infection 09/27/2016 Shingles 09/27/2016 [place] (myocardial infarction) 09/27/2016 A-fib 09/27/2016 Accelerated idioventricular [...] es 65 and older) 12/08/2008 RSV Vaccine 50 years and old er and Patients (1 - 1-dose 75+ series) 12/08/2018 Influenza Vaccine 10/18/2024 COVID-19 Vaccine ( - 2023-2 5 season) 2024 Hepatitis B Vaccines Aged Out No long er eligible based on patient's age to complete this topic Medical Devices Implanted Type Area Octave Board Racker Device Identifier Shelf Expiration Date Model / Serial / Lot Coil Embolization 15cm 5mm Csms Vtrk 10 Coil Adv Delivery - [id number] Implanted:Qty: 1 on 09/04/2016 by Jesus Mathur MD at [facility] Coil [employer] 04/20/2019 [id number] / [id number] / Coil Embolization 8cm 4mm .0125in Axium Detach .3175mm 3d - [id number] Implanted:Qty: 1 on 09/04/2016 by Jesus Mathur MD at [facility] Coil [employer] MINIMALLY INVASIVE T 04/25/2019 QC-4-8-3D / QC-4-8-3D / Coil Embolization 4cm 3mm Axium Prm X Soft 3d - [id number] Implanted:Qty: 1 on 09/04/2016 by Jesus Mathur MD at [facility] Coil [employer] MINIMALLY INVASIVE T 07/30/2019 APB-3-4-3D -ES / APB-3-4-3D -ES / Coil Embolization 6cm 2.5mm Axium Prm X Soft 3d - [id number] Implanted:Qty: 1 on 09/04/2016 by Jesus Mathur MD at [facility] Coil [employer] MINIMALLY INVASIVE T 03/22/2018 APB-2.5-6- 3D-ES / APB-2.5-6- 3D-ES / System Embolization 8cm 5mm .0115in Axium Prm Latticefx - [id number] Implanted:Qty: 1 on 09/04/2016 by Jesus Mathur MD at [facility] Screw [employer] MINIMALLY INVASIVE T 04/15/2019 APB-5-8-3D -SS / APB-5-8-3D -SS / Explanted Type Area Octave Board Racker Device Identifier Shelf Expiration Date Model / Serial / Lot Coil Embolization 2cm 2mm Axium Prm X Soft 3d - [id number] Implanted:Qty: 1 Explanted:Qty: 1 on 09/04/2016 at [facility] Coil [employer] MINIMALLY INVASIVE T 06/14/2018 APB-2-2-3D- ES / APB-2-2-3D- ES / Insurance MEDICARE PART A & B [facility] Advance Directives * Full Code (Latest Code Status on File) Date Activated Date Inactivated Comments 09/04/2016 3:10 AM 09/27/2016 6:35 PM Question Answer Comments Decision Thoroughly Discussed with: Patient Care Teams Wind Turbine Design Engineer Relationship Specialty Start Date End Date Vandana Carvajal MD [address] [place] [id number] PCP - General 08/24/17
== END 2025-01-10 13:06 | disposition home or self-care (01) ==
PROVIDERS: PCP Internal Medicine; Visit Provider Internal Medicine
DX: Z00.00 Encounter for general adult medical examination without abnormal findings (principal); I10 Essential (primary) hypertension; I48.91 Unspecified atrial fibrillation; G81.90 Hemiplegia, unspecified affecting unspecified side; E78.5 Hyperlipidemia, unspecified; L98.9 Disorder of the skin and subcutaneous tissue, unspecified

== ENCOUNTER 2025-03-10 12:10 | Outpatient (REF) | payer MEDICARE, OTHER, SELFPAY ==
--- OUTSIDE RECORDS SUMMARY | 2025-03-10 16:45 | XMS_ITS | Encounter Summary ---
Author Organization [facility] Address [address] [place] [address] Care Team Providers Care Thermite Bomb Loader Name Role Phone Vandana Carvajal MD Primary Care Provider [phone] Encounter Details Date Type Department Care Team (Late st Contact Info) Description 09/28/2016 Scanned Document [facility] Neurosurgery [place] [address] [place] [address] Lang Vega MD [facility] [address] [place] [id number] Social History Tobacco Use Types Packs/Day Years [...] on filedocumented in this encounter Care Teams Thermite Bomb Loader Relationship Specialty Start Date End Date Vandana Carvajal MD [address] [place] [address] PCP - General 08/24/17 documented as of this encounter
--- OUTSIDE RECORDS SUMMARY | 2025-03-10 16:45 | XMS_ITS | Clinical Summary ---
Author Organization [facility] Address [address] [place] [address] Phone Care Team Providers Care Van Helper Name Role Phone Vandana Carvajal MD Primary Care Provider Encounters Date Type Department Care Team Description 01/24/2025 11:45 AM EST Ancillary Procedure [facility] [address] [facility] [address] [place] [address] from Last 3 Months Medical History Medical History Date Comments Diarrhea DX:Diarrhea NSTEMI (non-ST elevated myoc ardial infarction) (CMS/HCC V24, CMS/HCC V28) DX:NSTEMI (non- ST elevated myocardial infarction) ([facility]) Rectal bleeding DX:Rectal bleedi ng Subarachnoid hemorrhage (CMS /HCC V24, CMS/HCC V28) DX:Subarachnoid hemorrhage ( [facility]) Social History Tobacco Use Types [...] Test 03/03/2022 Depression Screening 03/20/2024 COVID-19 Vaccine ( - season) 2024 06/02/2020, 05/05/2020 Influenza Vaccine [...] this topic Medical Devices Implanted Type Area Railroad Dining Car Steward/Stewardess Device Identifier Shelf Expiration Date Model / Serial / Lot FouziaHaileyCassidy Fontana 8 Pia [id number] Implanted:0 03/2021 (Quantity not on file) Cardiac Pacemaker [employer] ALEXA NAIK / [id number] / Procedures Procedure Name Priority Date/Time Associated Diagnosis Comments CARDIAC DEVICE CHECK- REMOTE- MURJ Routine 01/24/2025 11:41 AM EST from Last 3 Months Results * Cardiac device check - Remote- MURJ (01/24/2025 11:41 AM EST) Date Time Interrogation Session [id number] CV DEVICE CHECK Type Interrogation Session RemoteScheduled CV DEVICE CHECK Implantable Pulse Generator Railroad Dining Car Steward/Stewardess BIO CV DEVICE CHECK Implantable Pulse Generator Type IPG CV DEVICE CHECK Implantable Pulse Generator Model Edora 8 DR-T CV DEVICE CHECK Implantable Pulse Generator Serial Number [id number] CV DEVICE CHECK Implantable Pulse Generator Implant Date [id number] CV DEVICE CHECK Battery Remaining Percentage 75.00 CV DEVICE CHECK Battery Status Middle of Service CV DEVICE CHECK Pramdo Statistic RA Percent Paced 13.00 CV DEVICE CHECK Pramod Statistic RV Percent Paced 97.00 CV DEVICE CHECK Atrial Tachy Statistic AT/AF [place] Percent 0.00 CV DEVICE CHECK Lead Channel Sensing Intrinsic Amplitude 4.600 CV DEVICE CHECK Lead Channel Setting Sensing Sensitivity 0.50 CV DEVICE CHECK Lead Channel Impedance Value 585 CV DEVICE CHECK Lead Channel RA Pacing Threshold Date 2025-01-09 CV DEVICE CHECK Lead Channel Setting Pacing Amplitude 2.000 CV DEVICE CHECK Lead Channel Setting Pacing Pulse Width 0.4 CV DEVICE CHECK Lead Channel Sensing Intrinsic Amplitude 18.900 CV DEVICE CHECK Lead Channel Setting Sensing Sensitivity 2.00 CV DEVICE CHECK Lead Channel Impedance Value 878 CV DEVICE CHECK Lead Channel Pacing Threshold Amplitude 0.700 CV DEVICE CHECK Lead Channel Pacing Threshold Pulse Width 0.4 CV DEVICE CHECK Lead Channel RV Pacing Threshold Date 2025-01-09 CV DEVICE CHECK Lead Channel Setting Pacing [...] 140 CV DEVICE CHECK Date of Service 2025-01-24 CV DEVICE CHECK Anatomical Region Laterality Modality Device Interroga tion 01/08/2025 5:24 PM EDT Impressions 01/24/2025 11:34 AM EST Normal Remote: No Events * Normal Device Function * Alerts or events: None * Battery: Battery is at 75%, * Sensing, impedance and thresholds reviewed * Programmed parameters reviewed * Presenting rhythm reviewed * Heart Rate Histograms reviewed * No significant changes noted Narrative Procedure Note Sathish Mauricio MD - 01/24/2025 IMPRESSION: Normal Remote: No Events * Normal Device Function * Alerts or events: None * Battery: Battery is at 75%, * Sensing, impedance and thresholds reviewed * Programmed parameters reviewed * Presenting rhythm reviewed * Heart Rate Histograms reviewed * No significant changes noted Sathish Mauricio MD CV IMPLANTABLE CARDIAC DEVICE PROCEDURES Final Result from Last 3 Months Insurance [employer] MEDICARE Care Teams Van Helper Relationship Specialty Start Date End Date Vandana Carvajal MD PCP - General 06/01/17
--- OUTSIDE RECORDS SUMMARY | 2025-03-10 16:45 | XMS_ITS | Clinical Summary ---
Author Organization [facility] Address [address] [place] [address] Care Team Providers Care Draw Hand Name Role Phone Vandana Carvajal MD Primary Care Provider [phone] Allergies No known active allergies Medications ergocalciferol [...] Influenza Vaccine 10/18/2024 COVID-19 Vaccine ( - 2024-2 6 season) 2024 Hepatitis B Vaccines Aged Out No long er eligible based on patient's age to complete this topic Medical Devices Implanted Type Area Slotter Operator Device Identifier Shelf Expiration Date Model / Serial / Lot Coil Embolization 15cm 5mm Csms Vtrk 10 Coil Adv Delivery - [id number] Implanted:Qty: 1 on 09/04/2016 by Jesus Mathur MD at [facility] Coil [employer] 04/20/2019 [id number] / [id number] / Coil Embolization 8cm 4mm .0125in Axium Detach .3175mm 3d - [id number] Implanted:Qty: 1 on 09/04/2016 by Jesus Mathur MD at [facility] Coil [employer] [place] 04/25/2019 QC-4-8-3D / QC-4-8-3D / Coil Embolization 4cm 3mm Axium Prm X Soft 3d - [id number] Implanted:Qty: 1 on 09/04/2016 by Jesus Mathur MD at [facility] Coil [employer] [place] 07/30/2019 APB-3-4-3D -ES / APB-3-4-3D -ES / Coil Embolization 6cm 2.5mm Axium Prm X Soft 3d - [id number] Implanted:Qty: 1 on 09/04/2016 by Jesus Mathur MD at [facility] Coil [employer] [place] 03/22/2018 APB-2.5-6- 3D-ES / APB-2.5-6- 3D-ES / System Embolization 8cm 5mm .0115in Axium Prm Latticefx - [id number] Implanted:Qty: 1 on 09/04/2016 by Jesus Mathur MD at [facility] Screw [employer] [place] 04/15/2019 APB-5-8-3D -SS / APB-5-8-3D -SS / Explanted Type Area Slotter Operator Device Identifier Shelf Expiration Date Model / Serial / Lot Coil Embolization 2cm 2mm Axium Prm X Soft 3d - [id number] Implanted:Qty: 1 Explanted:Qty: 1 on 09/04/2016 at [facility] Coil [employer] [place] 06/14/2018 APB-2-2-3D- ES / APB-2-2-3D- ES / Insurance MEDICARE PART A & B [facility] Advance Directives * Full Code (Latest Code Status on File) Date Activated Date Inactivated Comments 09/04/2016 3:10 AM 09/27/2016 6:35 PM Question Answer Comments Decision Thoroughly Discussed with: Patient Care Teams Draw Hand Relationship Specialty Start Date End Date Vandana Carvajal MD [address] [place] [id number] PCP - General 08/24/17
[2025-03-10 16:54] LABS: Appearance Urine Turbid
[2025-03-10 16:55] LABS: Other Crystals Urine Present
== END 2025-03-10 12:11 | disposition home or self-care (01) ==
LOC: HO.HMGCLNP 12:10
PROVIDERS: PCP Internal Medicine; Visit Provider Internal Medicine
DX: I10 Essential (primary) hypertension (principal); I48.91 Unspecified atrial fibrillation; E78.5 Hyperlipidemia, unspecified; G81.90 Hemiplegia, unspecified affecting unspecified side; R30.0 Dysuria
CPT/HCPCS: 81001; 87086; 87088; 87186